=== PATIENT | male | born 1975 | race Caucasian/White ===

== ENCOUNTER 2020-02-28 09:00 | Emergency (ER) | payer MEDICAID, SELFPAY ==
[2020-02-28 09:02] VITALS: BP 140/78; PULSE 108; RESP 20; TEMP 36.9; O2SAT 90; BMI 24.4
--- NOTE | 2020-02-28 09:07 | XR_ITS ---
WS: [id number] Portable AP upright chest, 02/28/2020 Clinical Data: Altered mental status Comparison: None. Findings: No nodules, masses or effusions are seen. The heart is normal. The pulmonary vascularity is not increased. No pneumonia or pneumothorax is seen. The aortic arch and descending aorta show tortu osity. There is blunting of the right costophrenic angle from pleural reaction.. XR/XR chest 1V portable [id number] Impression: Atherosclerosis.
--- NOTE | 2020-02-28 09:07 | CT_ITS ---
WS: [id number] CT HEAD TECHNIQUE: Noncontrast CT of the head obtained from the skullbase to the vertex. CLINICAL INFORMATION: Altered mental status, possible seizure COMPARISON: CT 5 6019 DLP: 804.[address] scans at [facility] use at least one of these dose optimization techniques: automat ed exposure control; mA and/or kV adjustment per patient size (includes targeted exams where dose is matched to clinical indication); or iterative reconstruction. FINDINGS: No evidence of intracranial hemorrhage or mass effect. Ventricular system and basal cisterns are becker nt. No extra-axial fluid collections. No evidence of mass or mass effect. Normal chinchilla-white different iation. Paranasal sinuses and mastoid air cells are well aerated. .Normal visualized soft tissues. CT/CT head wo con* [id number] IMPRESSION: 1. No evidence of intracranial hemorrhage or mass effect. 2. No acute intracranial findings. Attempted notification Mariana Perez at 02/28/2020 9:33 AM.
--- NOTE | 2020-02-28 09:08 | ECG_ITS ---
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 Measurements Intervals [place] Rate: 98 P: 49 [place]: 148 QRS: 19 QRSD: 105 T: 71 QT: 334 QTc: 427 Interpretive Statements SINUS RHYTHM Compared to ECG 09/11/2018 01:44:18 No significant changes Electronically Signed On 02-28-2020 18:25:16 CDT by Braulio Null M.D. [email or web address]/[id number] f
--- NOTE | 2020-02-28 09:09 | ED_ITS ---
HPI - Altered Mental Status General: Chief Complaint: Altered Mental Status Stated Complaint: AMS Time Seen by Provider: 02/28/20 09:07 Source: patient and EMS Mode of arrival: EMS Limitations: no limitations History of Present Illness: HPI narrative: Michael is a nice 44-year-old male comes in complaining of altered mental status. Patient's called EMS this morning after the patient woke up with evidence of twitching that progressed into a spell in which she lost consciousness and apparently became stiff and rigid. Upon EMS arrival they state he was confused but did follow commands. Patient admits to drinking daily and using drugs. Patient states that he will have withdrawal seizures when he stops drinking but he said he drank a 12 pack of beer last night and then has already had 4-5 beers this morning. Patient states that he has no intention of stopping drinking at this time. Patient states he used methamphetamines 1 week ago but has not used anything since. Patient denies any complaints of pain at this time and he feels like he is back to normal. Patient states he still feels some soft twitch occasionally. He otherwise denies any new headaches, neck pain, chest pain, shortness of breath, back pain, nausea vomiting, abdominal pain, diarrhea, or any other complaint. Patient's is apparently on her way but is not appear here yet to the ER to further describe what happened this morning. Review of Systems Const: Denies: fever(s), chills, body aches, fatigue, malaise or diaphoresis Eyes: Denies: change in vision, blurry vision, photophobia, eye discomfort, eye discharge, eye redness or yellow eyes ENMT: Denies: throat pain, odynophagia, hoarseness, swelling of lips/tongue, ear or mastoid pain, ear discharge, change in hearing or nasal discharge Card: Denies: chest pain, palpitations, irregular heart rhythm, edema, lightheadedness, syncope, pre-syncope, dyspnea on exertion or orthopnea Resp: Denies: dyspnea, productive cough, non-productive cough, wheezing, hemoptysis or chest congestion GI: Denies: abdominal pain, nausea, vomiting, hematemesis, coffee ground emesis, heartburn, diarrhea, constipation, GI cramping, hematochezia or melena : Denies: flank pain, dysuria, urinary frequency, urinary urgency or hematuria Musc: Denies: neck pain, back pain, extremity pain, extremity swelling, joint pain, joint swelling, joint redness, joint warmth or joint stiffness Skin/Breast: Denies: rash, pruritus, erythema, skin pain or skin tenderness Neuro: Reports: seizure-like activity and involuntary movements; Denies: headache(s), numbness in extremities, weakness in extremities, sensory changes, lack of coordination, difficulty walking, dizziness, vertigo, confusion or Slurred speech present Vijay/Lymph: Denies: easy bruising, easy bleeding, petechiae, purpura or enlarged lymph nodes All/Imm: Denies: urticaria, throat swelling, tongue swelling, facial swelling or acute wheezing PFSH ED PFSH: Medical History Alcoholism Anxiety Depression Polysubstance abuse Social History Current gender identity: Male Physical Exam Const: COMMON NORMALS: no acute distress, patient oriented x3, no limitations and alert GENERAL APPEARANCE: cooperative HENMT: COMMON NORMALS: normocephalic, atraumatic, external ears normal, EAC's normal and Normal external nose present HEAD & SCALP: normal to inspection, normocephalic and atraumatic FACE & SINUS: normal facial exam and face symmetric NOSE: Normal external nose present and Normal nares present EXTERNAL EAR: Yes external ears normal EXTERNAL AUDITORY CANAL: EAC's normal MOUTH: Normal oral and palatal mucosa present, lip normal and tongue normal Eye: COMMON NORMALS: Equal, round and reactive pupils present and conjunctivae normal GENERAL EYE: appearance normal, both eyes and all related structures ALIGNMENT: Yes alignment normal PERIORBITAL: periorbital findings normal EYELID: eyelids normal CONJUNCTIVA: Yes conjunctivae normal SCLERA: sc lerae normal PUPIL: Yes Equal, round and reactive pupils present Neck/C-Spine: COMMON NORMALS: full ROM, no lymphadenopathy, supple, no meningeal signs and no JVD GENERAL: Yes normal visual inspection and Yes trachea midline Chest: COMMONS NORMALS: normal inspection of the chest and normal palpation of entire chest wall Resp: COMMON NORMALS: normal respiratory effort, No retractions, No use of accessory muscles and clear to auscultation bilaterally EFFORT & INSPECTION: Yes able to speak in complete sentences and Yes symmetric chest movement AUSCULTATION: clear to auscultation bilaterally, no crackles, no rales, no rhonchi and no wheezes Cardio: COMMON NORMALS: no JVD, regular rate, regular rhythm, S1 normal heart sound present and S2 normal heart sound present RATE: regular rate RHYTHM: regular rhythm HEART SOUNDS: S1 normal heart sound present, S2 normal heart s ound present, no click, no gallops, no murmurs and no rubs GI: COMMON NORMALS: Soft to palpation and No hepatosplenomegaly present PALPATION: Yes Soft to palpation, No Tenderness to palpation present (GI), No Guarding due to palpation present (GI), No Rigid due to palpation, Yes No hepatosplenomegaly present, No Hernia present, No Palpable mass present and No Pulsatile mass present : COMMON NORMALS: Yes no CVA tenderness BLADDER/KIDNEY EXAM: Yes no CVA tenderness Back/Pelvis: COMMON NORMALS: no CVA tenderness, thoracic and lumbar spine normal to inspection, no thoracic nor lumbar tenderness and thoraco-lumbar ROM normal Extremity: COMMON NORMALS: normal to inspection, full ROM, capillary refill normal, no joint enlargement, no clubbing, cyanosis or edema and no calf tenderness Neuro: COMMON NORMALS: patient oriented x3, CN's II-XII intact bilaterally, moves all extremities, no focal motor deficits and no sensory deficits noted SENSORIUM/ORIENTATION: Yes alert MENINGEAL SIGNS: Yes no meningeal signs SPEECH: speech normal Psych: COMMON NORMALS: mental status grossly normal, Normal thought process present, cooperative, normal affect, speech normal and activity/motor behavior normal SPEECH: Yes normal speech THOUGHT PROCESS: Normal thought process present Skin: COMMON NORMALS: no rashes or lesions noted, turgor normal, no jaundice, no petechiae and no mottling GENERAL SKIN EXAM: no rashes or lesions noted and turgor normal Course ED course: 0947 -patient had a brief 30 second seizure that resolved on its own. Blood sugar was 102. Vital Signs: Vital signs: Vital Signs Temperature 98.4 F 02/28/20 09:02 Pulse Rate 85 02/28/20 11:30 Respiratory Rate 16 02/28/20 11:30 Blood Pressure 157/91 02/28/20 11:30 Pulse Oximetry 93 02/28/20 11:30 MDM - Altered Mental Status MDM Narrative: Medical decision making narrative: 1112 -the patient had been admitted and I had reviewed the case in its entirety with Dr. Doyle and she was agreeable to see the patient she had she was here in the ER to see the patient but he is refusing to stay because he cannot have a visitor. I have done my best to try to convince him to stay for further evaluation and care but he refuses. Patient clearly has capacity to make his own decisions shows no sign of impairment at this time. I have informed him that alcohol withdrawal can put him at risk of or severe permanent disability despite discussing this at length the patient refuses and wants to be discharged. His who is with him understands all this and she states that she will help him and has asked for something at home for him to quit drinking. I will give them a prescription for Ativan but she is aware she must manage this and he cannot mix the medicine with alcohol. Patient clearly has capacity to make this decision and shows no sign of impairment. He agrees to return should his symptoms change or worsen. Lab Data: Attestation: I reviewed the patient's lab results. Labs: Lab Results 02/28/20 02/28/20 02/28/20 Range/Units 09:43 09:50 09:50 WBC 6.5 (4.0-10.0) 10^3/ uL RBC 5.51 H (4.1-5.3) 10^6/u L Hgb 17.1 H (11.7-16.6) g/dL Hct 50.3 (42.0-52.0) % MCV 91.3 (80-94) fL MCH 31.0 (28.0-34.0) pg MCHC 34.0 (30.0-36.0) g/dL RDW 12.3 (12.1-15.1) % Plt Count 147 (130-400) 10^3/c mm MPV 12.1 H (7.4-10.4) fL Neut % (Auto) 61.1 % Lymph % (Auto) 27.7 % [place] % (Auto) 7.6 % Eos % (Auto) 2.8 % Baso % (Auto) 0.6 % Neut # (Auto) 3.97 (1.8-7.7) 10^3/u L Lymph # (Auto) 1.8 (0.8-4.8) 10^3/u L [place] # (Auto) 0.5 (0.2-0.9) 10^3/u L Eos # (Auto) 0.2 (0.0-0.8) 10^3/u L Baso # (Auto) 0.0 (0.0-0.1) 10^3/u L Nucleated RBC % (a uto) 0 % Nucleated RBCs # 0.0 /100WBC PT (12.1-14.9) SECO NDS INR (0.8-1.2) Specimen Type Arterial Sample Site Rr ABG pH 7.11 L* (7.35-7.45) ABG pCO2 37.5 (35-45) mmHg ABG pO2 123.0 H (80.0-100.0) mmH g ABG HCO3 11.8 L (22-26) mmol/L ABG O2 Saturation 97.5 ABG Base Excess -17.1 L (-2.0-2.0) mmol/ L Yaya Test Pos A-a O2 Gradient Not Reportable Hematocrit 56.1 H (42-52) % Hgb O2 Saturation 92.4 L (95-100) % Carboxyhemoglobin 4.7 (0.4-20.1) %THgb Methemoglobin 0.6 (0.4-1.5) % Total Hemoglobin 18.3 H (14-18) g/dL Sodium 146.0 H 141 (131-143) mmol/L Potassium 3.7 4.0 (3.5-5.0) mmol/L Glucose 116.0 H 117 H (70-115) mg/dL Ionized Calcium 1.3 (1.1-1.4) mmol/L O2 Delivery Device Nc O2 Liters/Min % Learning Administrator [facility] Notified Time 0958 Chloride 106 (98-107) mmol/L Carbon Dioxide 23 (22-29) mmol/L Anion Gap 16.0 (5-19) BUN 7 (6-20) mg/dL Creatinine 0.9 (0.7-1.2) mg/dL GFR Calculation 91.7 (90-130) mL/min Calculated Osmolal ity 291 (285-295) mOsm/k g Lactic Acid (0.5-2.2) mmol/L Calcium 9.4 (8.5-10.5) mg/dL Magnesium 2.1 (1.7-2.3) mg/dL Total Bilirubin 0.3 (0.15-1.2) mg/dL AST 29 (0-40) U/L ALT 28 (0-41) U/L Alkaline Phosphata se 102 (40-130) IU/L Creatine Kinase 49 (39-308) U/L Troponin T Baselin e (0-15) ng/L Total Protein 6.3 L (6.6-8.7) g/dL Albumin 4.1 (3.5-5.2) g/dL Globulin 2.2 (1.3-4.6) g/dL Lipase 30 (13-60) U/L Ethyl Alcohol < 10 (0-10) mg/dL Serum Ketones Negative (Negative) 02/28/20 02/28/20 02/28/20 Range/Units 09:50 09:50 09:50 WBC (4.0-10.0) 10^3/ uL RBC (4.1-5.3) 10^6/u L Hgb (11.7-16.6) g/dL Hct (42.0-52.0) % MCV (80-94) fL MCH (28.0-34.0) pg MCHC (30.0-36.0) g/dL RDW (12.1-15.1) % Plt Count (130-400) 10^3/c mm MPV (7.4-10.4) fL Neut % (Auto) % Lymph % (Auto) % [place] % (Auto) % Eos % (Auto) % Baso % (Auto) % Neut # (Auto) (1.8-7.7) 10^3/u L Lymph # (Auto) (0.8-4.8) 10^3/u L [place] # (Auto) (0.2-0.9) 10^3/u L Eos # (Auto) (0.0-0.8) 10^3/u L Baso # (Auto) (0.0-0.1) 10^3/u L Nucleated RBC % (a uto) % Nucleated RBCs # /100WBC PT 13.00 (12.1-14.9) SECO NDS INR 0.95 (0.8-1.2) Specimen Type Sample Site ABG pH (7.35-7.45) ABG pCO2 (35-45) mmHg ABG pO2 (80.0-100.0) mmH g ABG HCO3 (22-26) mmol/L ABG O2 Saturation ABG Base Excess (-2.0-2.0) mmol/ L Yaya Test A-a O2 Gradient Hematocrit (42-52) % Hgb O2 Saturation (95-100) % Carboxyhemoglobin (0.4-20.1) %THgb Methemoglobin (0.4-1.5) % Total Hemoglobin (14-18) g/dL Sodium (131-143) mmol/L Potassium (3.5-5.0) mmol/L Glucose (70-115) mg/dL Ionized Calcium (1.1-1.4) mmol/L O2 Delivery Device O2 Liters/Min % Learning Administrator ID Blood Gas Notified Time Chloride (98-107) mmol/L Carbon Dioxide (22-29) mmol/L Anion Gap (5-19) BUN (6-20) mg/dL Creatinine (0.7-1.2) mg/dL GFR Calculation (90-130) mL/min Calculated Osmolal ity (285-295) mOsm/k g Lactic Acid 3.4 H (0.5-2.2) mmol/L Calcium (8.5-10.5) mg/dL Magnesium (1.7-2.3) mg/dL Total Bilirubin (0.15-1.2) mg/dL AST (0-40) U/L ALT (0-41) U/L Alkaline Phosphata se (40-130) IU/L Creatine Kinase (39-308) U/L Troponin T Baselin e 6 (0-15) ng/L Total Protein (6.6-8.7) g/dL Albumin (3.5-5.2) g/dL Globulin (1.3-4.6) g/dL Lipase (13-60) U/L Ethyl Alcohol (0-10) mg/dL Serum Ketones (Negative) 02/28/20 Range/Units 11:00 WBC (4.0-10.0) 10^3/ uL RBC (4.1-5.3) 10^6/u L Hgb (11.7-16.6) g/dL Hct (42.0-52.0) % MCV (80-94) fL MCH (28.0-34.0) pg MCHC (30.0-36.0) g/dL RDW (12.1-15.1) % Plt Count (130-400) 10^3/c mm MPV (7.4-10.4) fL Neut % (Auto) % Lymph % (Auto) % [place] % (Auto) % Eos % (Auto) % Baso % (Auto) % Neut # (Auto) (1.8-7.7) 10^3/u L Lymph # (Auto) (0.8-4.8) 10^3/u L [place] # (Auto) (0.2-0.9) 10^3/u L Eos # (Auto) (0.0-0.8) 10^3/u L Baso # (Auto) (0.0-0.1) 10^3/u L Nucleated RBC % (a uto) % Nucleated RBCs # /100WBC PT (12.1-14.9) SECO NDS INR (0.8-1.2) Specimen Type Arterial Sample Site Radial, right ABG pH 7.36 (7.35-7.45) ABG pCO2 39.9 (35-45) mmHg ABG pO2 78.9 L (80.0-100.0) mmH g ABG HCO3 22.5 (22-26) mmol/L ABG O2 Saturation ABG Base Excess -2.7 L (-2.0-2.0) mmol/ L Yaya Test Pos A-a O2 Gradient Hematocrit 50.4 (42-52) % Hgb O2 Saturation (95-100) % Carboxyhemoglobin (0.4-20.1) %THgb Methemoglobin (0.4-1.5) % Total Hemoglobin (14-18) g/dL Sodium (131-143) mmol/L Potassium (3.5-5.0) mmol/L Glucose (70-115) mg/dL Ionized Calcium (1.1-1.4) mmol/L O2 Delivery Device Nc O2 Liters/Min 4.0 % Learning Administrator ID [place] Blood Gas Notified Time Chloride (98-107) mmol/L Carbon Dioxide (22-29) mmol/L Anion Gap (5-19) BUN (6-20) mg/dL Creatinine (0.7-1.2) mg/dL GFR Calculation (90-130) mL/min Calculated Osmolal ity (285-295) mOsm/k g Lactic Acid (0.5-2.2) mmol/L Calcium (8.5-10.5) mg/dL Magnesium (1.7-2.3) mg/dL Total Bilirubin (0.15-1.2) mg/dL AST (0-40) U/L ALT (0-41) U/L Alkaline Phosphata se (40-130) IU/L Creatine Kinase (39-308) U/L Troponin T Baselin e (0-15) ng/L Total Protein (6.6-8.7) g/dL Albumin (3.5-5.2) g/dL Globulin (1.3-4.6) g/dL Lipase (13-60) U/L Ethyl Alcohol (0-10) mg/dL Serum Ketones (Negative) Imaging Data^: CT Head: Radiologist's impression: [place] [id number] CT Scan Report Signed Patient: Michael Ford Unit #: [id number] : 1975 Age/Sex: 44 / M ADM Date: 02/28/20 Loc: ER Room/Bed: Attending Dr: Ordering Provider/Ordering MD: Mariana Perez DO Date of Service: 02/28/20 Procedure(s): CT head wo con* [id number] Accession Number(s): [id number] Report Number: [id number] WS: [id number] CT HEAD TECHNIQUE: Noncontrast CT of the head obtained from the skullbase to the vertex. CLINICAL INFORMATION: Altered mental status, possible seizure COMPARISON: CT 5 6019 DLP: 804.[address] scans at [facility] use at least one of these dose optimization techniques: automated exposure control; mA and/or kV adjustment per patient size (includes targeted exams where dose is matched to clinical indication); or iterative reconstruction. FINDINGS: No evidence of intracranial hemorrhage or mass effect. Ventricular system and basal cisterns are patent. No extra-axial fluid collections. No evidence of mass or mass effect. Normal chinchilla-white differentiation. Paranasal sinuses and mastoid air cells are well aerated. .Normal visualized soft tissues. CT/CT head wo con* [id number] IMPRESSION: 1. No evidence of intracranial hemorrhage or mass effect. 2. No acute intracranial findings. Attempted notification Mariana Perez at 02/28/2020 9:33 AM. Dictated By: Jed Plummer MD Signed By: Jed Plummer MD Signed Date/Time: 02/28/20933 DD/ 5 EKG Data^: EKG 1: Attestation: I personally reviewed and interpreted this EKG as follows: EKG interpretation date: 02/28/20 EKG interpretation time: 09:09 Interpretation: Normal sinus rhythm at 98 beats a minute, normal axis, no blocks, normal intervals, no acute ST or T wave changes. Discharge Plan Discharge Patient Disposition: Home Clinical Impression: Alcoholism Condition: Stable Prescriptions: New Ativan 1 mg tablet 1 mg PO Q8H PRN (Reason: alcohol withdrawal) Qty: 14 RF: 0 No Action Unable to Assess RF: 0 Discharge Orders: Discharge Order (Routine); Ordered 02/28/20 Ordered By: Mariana Perez Referrals: Lauryn Jones FNP [Primary Care Provider] - 1-3 days Discharge Diet: Advance as tolerated Discharge Activity: Limit activity as instructed Patient Instructions: Alcohol Withdrawal (ED) Activity Restrictions/Additional Instructions: You're leaving AGAINST MEDICAL ADVICE and are at risk for or severe permanent disability by doing so. You are more than welcome to return at any time for recheck and for further evaluation and care suture change you change your mind. Do not mix alcohol with the medicines I have given you for withdrawal. Follow-up with your primary care provider as soon as possible for further management of your alcoholism. If you change your mind you are more than welcome to return here at any time for recheck and for further evaluation and care. Stand Alone Forms: Against Medical Advice Discharge Date/Time: 02/28/20 11:46 Coding Level of Care Code ED Assistant Real Estate Manager for Chg Fwd Exam Comprehensive
[2020-02-28 09:27] VITALS: BP 123/102; PULSE 92; RESP 18; O2SAT 89
[2020-02-28 09:52] VITALS: BP 162/90; PULSE 115; RESP 27; O2SAT 94
[2020-02-28 09:57] LABS: ABG PCO2 37.5 mmHg (35-45); ABG PH Result 7.11 (7.35-7.45); Base Excess ABG -17.1 mmol/L (-2.0-2.0); Blood Gas Allen Test POS; Blood Gas Operator Identificat MONRO; Blood Gas Sample Type ARTERIAL; HCO3 ABG 11.8 mmol/L (22-26); Oxygen Device NC; Oxygen Saturation ABG 97.5; Potassium Level - ABG 3.7 mmol/L (3.5-5.0)
[2020-02-28 09:58] LABS: Arterial Blood Gas Hematocrit 56.1 % (42-52); Blood Gas Sample Site RR; Carboxyhemoglobin 4.7 %THgb (0.4-20.1); HGB O2 Sat 92.4 % (95-100); Ionized Calcium Level - ABG 1.3 mmol/L (1.1-1.4); Methemoglobin 0.6 % (0.4-1.5); Total Hemoglobin 18.3 g/dL (14-18)
[2020-02-28] MEDS: folic acid 1 MG, multivitamin inj 10 ML, thiamine 100 MG in sodium chloride 0.9% 1,000 ML 252.8 MG IV (10:03)
[2020-02-28] MEDS: sodium chloride 0.9% 1,000 ML 999 ML IV (10:03)
[2020-02-28] MEDS: LORazepam 2 mg/mL INJ 1 mL 1 MG IVP ×2 (10:03→11:27)
[2020-02-28 10:04] LABS: Basophils % 0.6 %; Eosinophils # 0.2 10^3/uL (0.0-0.8); Eosinophils % 2.8 %; Hematocrit 50.3 % (42.0-52.0); Hemoglobin 17.1 g/dL (11.7-16.6); Lymphocytes # 1.8 10^3/uL (0.8-4.8); Lymphocytes % 27.7 %; Mean Corpuscular Volume 91.3 fL (80-94); Mean Platelet Volume 12.1 fL (7.4-10.4); Monocytes # 0.5 10^3/uL (0.2-0.9); Monocytes % 7.6 %; Neutrophils # 3.97 10^3/uL (1.8-7.7); Neutrophils % 61.1 %; Nucleated Red Blood Cells % 0 %; Platelet Count 147 10^3/cmm (130-400); Red Blood Count 5.51 10^6/uL (4.1-5.3); Red Cell Distribution Width 12.3 % (12.1-15.1); White Blood Count 6.5 10^3/uL (4.0-10.0)
[2020-02-28 10:14] LABS: INR 0.95 (0.8-1.2)
[2020-02-28 10:17] LABS: Ketone (Acetest) Serum Negative (Negative)
[2020-02-28 10:24] LABS: Lactic Sepsis W/Reflex 3.4 mmol/L (0.5-2.2)
[2020-02-28 10:25] LABS: Troponin(5th) Baseline 6 ng/L (0-15)
[2020-02-28 10:26] LABS: Alanine Aminotransferase 28 U/L (0-41); Albumin Level 4.1 g/dL (3.5-5.2); Alcohol Level < 10 mg/dL (0-10); Alkaline Phosphatase 102 IU/L (40-130); Aspartate Amino Transferase 29 U/L (0-40); Blood Urea Nitrogen 7 mg/dL (6-20); Calcium 9.4 mg/dL (8.5-10.5); Carbon Dioxide 23 mmol/L (22-29); Chloride 106 mmol/L (98-107); Creatine Phosphokinase 49 U/L (39-308); Creatinine Clr Calc Pharmacy 117.3612; Globulin 2.2 g/dL (1.3-4.6); Glomerular Filtration Rate 91.7 mL/min (90-130); Glucose 117 mg/dL (65-115); Lipase 30 U/L (13-60); Magnesium 2.1 mg/dL (1.7-2.3); Osmolality Calculated 291 mOsm/kg (285-295); Sodium 141 mmol/L (136-145); Total Bilirubin 0.3 mg/dL (0.15-1.2); Total Protein 6.3 g/dL (6.6-8.7)
[2020-02-28 11:12] LABS: ABG PCO2 39.9 mmHg (35-45); ABG PH Result 7.36 (7.35-7.45); Arterial Blood Gas Hematocrit 50.4 % (42-52); Base Excess ABG -2.7 mmol/L (-2.0-2.0); Blood Gas Allen Test Pos; Blood Gas Operator Identificat MONRO; Blood Gas Sample Site Radial, right; Blood Gas Sample Type Arterial; HCO3 ABG 22.5 mmol/L (22-26); Oxygen Device NC; PO2 ABG 78.9 mmHg (80.0-100.0)
[2020-02-28 11:30] VITALS: BP 157/91; PULSE 85; RESP 16; O2SAT 93
--- NOTE | 2020-02-28 11:43 | PC.NURSE ---
patient was informed not to drink alcohol with the ativan patient stated he would not
[2020-02-28 11:48] LABS: Reflex Lactate Order REFLEX LACTIC ORDERD
[2020-02-28 19:16] LABS: Glucose Point of Care 102 mg/dL (70-110)
== END 2020-02-28 11:46 | disposition home or self-care (01) ==
PROVIDERS: Emergency Provider Emergency Medicine; PCP Nurse Practitioner
DX: F10.20 Alcohol dependence, uncomplicated (principal); Y90.0 Blood alcohol level of less than 20 mg/100 ml
CPT/HCPCS: 12345; 36416; 36600; 70450; 71045; 80051; 80053; 80307; 82009; 82550; 82803; 82810; 82962; 83605; 83690; 83735; 83986; 84484; 85025; 85610; 93005; 96361; 96374; 96375; 96376; 99283; J2060; J3411; J3490; J7030